=== PATIENT | male | born 1955 | race Caucasian/White ===

== ENCOUNTER → 2016-08-14 | Outpatient (CLI) | payer OTHER ==
--- NOTE | ~2016-08-14 | CT3 ---
[facility] A Service of [facility] RADIOLOGY TEXT RESULTS PATIENT: CAMERON WATTS LOCATION: [facility] : 57 UNIT #: [id number] AGE: [address]: Fabián Ramirez MD SEX: M ORDER DR: [id number] [facility] [address] [place], [place] [address] [id number] O MR#: [id number] Acc #: [id number] NAME: CAMERON WATTS. : 1955 SEX: M STUDY DATE/TIME: 08/14/2016 10:29 UNIT: [facility] ROOM: STUDY DESCRIPTION: CT Abd and Pelv WWo Cont Attending Physician: Fabián Ramirez M.D. Referring Physician: Fabián Ramirez M.D. Ordering Physician: Fabián Ramirez M.D. Primary Care Physician: Rosa M Stevens M.D. MEDICAL IMAGING REPORT This report is preliminary unless electronic signature is present EXAM CT of the abdomen and pelvis without and with contrast INDICATION Prostate cancer. Patient has had a positive prostate biopsy. Exam is requested for surveillance for metastatic disease. TECHNIQUE Axial precontrast imaging was obtained through the abdomen and pelvis. This was followed by postcontrast imaging through the abdomen and pelvis. This CT exam was performed with one or more of the following radiation dose reduction techniques: automatic exposure control, adjustment of mA and/or kV according to patient size, and iterative reconstruction. FINDINGS Images through the lung bases demonstrate some tree-in-bud infiltrates seen at the right lung base as well as a nodule measuring roughly 5.0 mm in size. Adrenal glands appear unremarkable as is the pancreas. Spleen is within normal limits. The stomach and proximal small bowel appear unremarkable. Patient does have pneumobilia as well as some air within the gallbladder likely reflecting prior sphincterotomy. Punctate nonobstructing stone is seen within the inferior pole of the right kidney. I do not see any stones on the left. Kidneys appear unremarkable. There is a low attenuation lesion identified within the right lobe of the liver which is indeterminate. It certainly could reflect a benign lesion but I would suggest further assessment with liver protocol CT or MRI given patient's history. There is no retroperitoneal adenopathy. GI tract appears normal. There may be a stone within the bladder. There is also dystrophic calcification seen within the prostate gland. No free fluid or adenopathy is seen within the pelvis. [facility] A Service of [facility] RADIOLOGY TEXT RESULTS PATIENT: CAMERON WATTS LOCATION: [facility] : 57 UNIT #: [id number] AGE: [address]: Fabián Ramirez MD SEX: M ORDER DR: Sclerotic focus is seen within the left iliac bone and another is seen within the left femur and another is seen within the right superior pubic ramus. These may simply reflect benign bone islands but given history of prostate cancer they should be viewed with suspicion and correlation with this patient's scheduled bone scan is recommended. There is a soft tissue density seen within the right inguinal region, which potentially could reflect an undescended testicle. Correlation with physical exam findings is suggested. IMPRESSION 1. This patient has scattered sclerotic foci seen within the pelvis, exact clinical significance is uncertain. Potentially they may be simply reflect benign bone islands but I think they should certainly be viewed with suspicion in light of this patient's history of prostate cancer. Correlation with patient's scheduled bone scan is recommended. 2. There is a low attenuation lesion seen within the right hepatic lobe which is indeterminate. It may simply reflect a benign lesion, however further evaluation with liver protocol CT or MRI is recommended. 3. Pneumobilia and gallbladder gas likely related to prior sphincterotomy. 4. Patient has a 5.0 mm nodule identified at the right lung base. Again, this is indeterminate. I would suggest a short-term CT followup in 6 months to document continuing stability. 5. Please see the body of the report for any other additional incidental findings. Dictated by... Dasha Harris M.D. THIS IS AN ELECTRONICALLY VERIFIED REPORT Dasha Harris M.D. at 08/14/2016 4:39 PM AFF/jw TD: 08/14/2016 12:37 JOB #: [id number] MEDICAL IMAGING REPORT Page 1 of 1 COPY
--- NOTE | ~2016-08-14 | NM8 ---
[facility] A Service of [facility] RADIOLOGY TEXT RESULTS PATIENT: CAMERON WATTS LOCATION: [facility] : 57 UNIT #: [id number] AGE: [address]: Fabián Ramirez MD SEX: M ORDER DR: [id number] [facility] [address] [place], [place] [address] [id number] O MR#: [id number] Acc #: [id number] NAME: CAMERON WATTS : 1955 SEX: M STUDY DATE/TIME: 08/14/2016 12:34 UNIT: [facility] ROOM: STUDY DESCRIPTION: NE Bone or Joint Whole Body Attending Physician: Fabián Ramirez M.D. Referring Physician: Fabián Ramirez M.D. Ordering Physician: Fabián Ramirez M.D. Primary Care Physician: Rosa M Stevens M.D. MEDICAL IMAGING REPORT This report is preliminary unless electronic signature is present EXAM Whole-body bone scan HISTORY 61-year-old male diagnosed with prostate cancer August 10, denies any pain. No recent trauma. COMPARISON CT abdomen and pelvis 08/14/2016 FINDINGS Whole-body and selected spot images were performed in the axial and appendicular skeleton following the intravenous administration of 28.5 mCi technetium 99m MDP. Examination demonstrates mild increased uptake within the lower lumbar spine facet joints at the L4-5 level. This corresponds to facet arthropathy as noted on the patient's recent CT. There is increased uptake within the right AC joint compatible with AC joint arthropathy. Mild increased uptake within the maxilla and mandible may be related to underlying periodontal disease. There is also mild increased uptake in the left posterior cervical spine, most likely related to underlying facet arthropathy. No abnormal uptake identified about the pelvis, long bones, ribs or skull to suggest osseous metastatic disease. Bilateral renal activity and normal bladder activity noted. IMPRESSION No bone scan findings to suggest osseous metastatic disease. Degenerative uptake noted within the lumbar spine, right AC joint. Dictated by... Ange Cloud M.D. THIS IS AN ELECTRONICALLY VERIFIED REPORT [facility] A Service of [facility] RADIOLOGY TEXT RESULTS PATIENT: CAMERON WATTS LOCATION: [facility] : 57 UNIT #: [id number] AGE: [address]: Fabián Ramirez MD SEX: M ORDER DR: Ange Cloud M.D. at 08/17/2016 1:06 PM DEBI/melissa TD: 08/16/2016 17:27 JOB #: [id number] MEDICAL IMAGING REPORT Page 1 of 1 COPY
[2016-08-14 10:05] LABS: POC - CREATININE 0.74 mg/dL (0.64-1.27); POC - GFR >60.0 mL/min (>60)
== END | disposition home or self-care (01) ==
LOC: CNUC 08:52
PROVIDERS: Urology
DX: C61 Malignant neoplasm of prostate (principal); K76.9 Liver disease, unspecified; R91.1 Solitary pulmonary nodule; M89.8X8 Other specified disorders of bone, other site
CPT/HCPCS: 74178; 78306; 82565; A9503; Q9967